=== PATIENT | female | born 1970 | race Caucasian/White ===

== ENCOUNTER 2018-01-25 14:25 | Emergency (ER) | payer OTHER ==
--- NOTE | 2018-01-25 14:38 | PDOC ---
Rapid Medical Evaluation Time Seen by Provider: 01/25/18 14:37 Medical Evaluation: Allergies Allergy/AdvReac Type Severity Reaction Status Date / Time No Known Allergies Allergy Unverified 04/17/15 11:31 01/25/18 14:37 The patient presents with a chief complaint of: neck pain, right arm numbness I have performed a brief in-person evaluation of this patient. Pertinent physical exam findings: vss, alert, oriented, ambulatory I have ordered the following: tylenol, labs, ekg The patient will proceed to the ED for further evaluation. 01/25/18 14:41
[2018-01-25] MEDS ORDERED: ACETAMINOPHEN 325 MG TABLET (FP) PO ONE (14:40)
[2018-01-25 14:43] VITALS: BMI 21.0
[2018-01-25] MEDS ORDERED: ACETAMINOPHEN 325 MG TABLET (FP) ONE (15:11)
[2018-01-25 15:37] LABS: BASO % 0.1 % (0-2.0); EOS % 0.8 % (0-4.5); HEMATOCRIT 39.4 % (32.4-45.2); HEMOGLOBIN 13.6 GM/dL (10.7-15.3); LYMPH % 15.7 % (8-40); MCH 31.9 pg (25.7-33.7); MCHC 34.5 g/dl (32.0-36.0); MEAN CELL VOLUME 92.7 fl (80-96); MEAN PLT VOLUME 7.2 fl (7.5-11.1); MONO % 7.9 % (3.8-10.2); NEUT % 75.5 % (42.8-82.8); PLATELET COUNT 234 K/MM3 (134-434); RBC 4.25 M/mm3 (3.60-5.2); RDW 12.6 % (11.6-15.6); WHITE BLOOD COUNT 5.5 K/mm3 (4.0-10.0)
--- NOTE | 2018-01-25 15:50 | PDOC ---
History of Present Illness - General Chief Complaint: Pain, Acute Stated Complaint: PCP SENT Time Seen by Provider: 01/25/18 14:37 History Source: Patient - History of Present Illness Timing/Duration: other Associated Symptoms: denies: headaches, nausea/vomiting, shortness of breath, syncope, weakness Past History - Past Medical History Allergies/Adverse Reactions: Allergies Allergy/AdvReac Type Severity Reaction Status Date / Time No Known Allergies Allergy Unverified 01/25/18 14:39 Home Medications: Ambulatory Orders NK [No Known Home Medication] 01/25/18 COPD: No - Suicide/Smoking/Psychosocial Hx Smoking History: Former smoker Have you smoked in the past 12 months: No Information on smoking cessation initiated: No Hx Alcohol Use: No Drug/Substance Use Hx: No Review of Systems - Review of Systems Constitutional: No: Chills, Fever HEENTM: No: Blurred Vision ABD/GI: No: Nausea, Vomiting Musculoskeletal: Yes: Neck Pain. No: Back Pain Neurological: Yes: Numbness. No: Headache, Tingling, Weakness, Dizziness *Physical Exam - Vital Signs Last Vital Signs Temp Pulse Resp BP Pulse Ox 139/91 100 01/25/18 14:40 01/25/18 15:20 - Physical Exam General Appearance: Yes: Appropriately Dressed. No: Apparent Distress HEENT: positive: Normal Voice Neck: positive: Supple. negative: Tender, Carotid bruit, Decreased range of motion Respiratory/Chest: negative: Respiratory Distress Integumentary: positive: Dry, Warm Neurologic: positive: production cell leader II-XII NML intact, Fully Oriented, Alert, Normal Mood/ Affect, Motor Strength 5/5, Finger to Nose. negative: Facial Droop, Sensory Deficit, Confused, Disoriented (no nystagmus, Sherley intact, no drift, no ataxia) ED Treatment Course - LABORATORY CBC & Chemistry Diagram: 01/25/18 15:13 01/25/18 15:13 - Medications Given in the ED: ED Medications Discontinued Medications Generic Name Dose Route Start Last Admin Trade Name Freq PRN Reason Stop Dose Admin Acetaminophen 650 mg 01/25/18 14:40 01/25/18 15:13 Tylenol - PO 01/25/18 14:41 650 mg ONCE ONE Administration Medical Decision Making - Medical Decision Making 01/25/18 15:39 48-year-old female, denies any significant past medical history, here c/o " funny feeling to right side of neck" that has been intermittent for several days and now feels the similar sensation to right upper extremity and possible numbness of fingers that has also been intermittent. Denies headache, acute dizziness, visual changes, slurred speech focal weakness, nausea or vomiting. No history of similar symptoms and no recent trauma. Seen by her primary doctor today, Dr. Elenita Pelaez ([phone]) and told her blood pressure was 160/90 in office. Was sent to ER to rule out possible TIA and DVT See exam Possible RUE radiculopathy, less likely TIA/CVA or DVT, no e/o dissection Well asif and stable w/ no focal deficits Pt declining CT and DVT studies at this time -Will discus w/ referring PMD 01/25/18 16:[address] Daigle and informed her of our exam and our impression that CVA and DVT very unlikely at this time. Geovany informs me that she sent patient in based on BP of 160/90 in office. Aware that blood pressure is better here. Also informed that patient is leaning more to declining CT and ultrasound. States it is reasonable for us to hold off on these studies given reported clinical findings. Above was explained to patient, who would prefer to hold off on any imaging at this time. Only requests that we repeat her blood pressure and if it still unremarkable would like to be discharged. Dr. Do aware 01/25/18 16:09 Rpt blood pressure 138/90. Patient now states she wants to have head CT and Doppler study done 01/25/18 17:37 CT head and ultrasound right upper extremity read as negative. Patient stable for discharge to continue following up with her PMD *DC/Admit/Observation/Transfer Diagnosis at time of Disposition: Numbness, Neck discomfort - Discharge Dispostion Disposition: HOME Condition at time of disposition: Good - Referrals Referrals: Elenita Ibrahim MD [Primary Care Provider] - - Patient Instructions Additional Instructions: The cause of your symptoms are unclear at this time, but could represent a nerve condition. Your head CT and right arm ultrasound were both negative. Continue to follow-up with your PMD for further evaluation - Post Discharge Activity
[2018-01-25 15:57] LABS: INR 0.96 (0.82-1.09); PROTHROMBIN TIME (PATIENT) 10.9 SEC (9.98-11.88)
[2018-01-25 16:00] LABS: ACTIVATED PTT 29.9 SECONDS (26.9-34.4)
--- NOTE | 2018-01-25 16:59 | PDOC ---
*Physical Exam - Vital Signs Last Vital Signs Temp Pulse Resp BP Pulse Ox 139/91 100 01/25/18 14:40 01/25/18 15:20 ED Treatment Course - LABORATORY CBC & Chemistry Diagram: 01/25/18 15:13 01/25/18 15:13 - ADDITIONAL ORDERS Additional order review: 01/25/18 15:13 RBC 4.25 MCV 92.7 MCHC 34.5 RDW 12.6 MPV 7.2 L Neutrophils % 75.5 Lymphocytes % 15.7 Monocytes % 7.9 Eosinophils % 0.8 Basophils % 0.1 - Medications Given in the ED: ED Medications Discontinued Medications Generic Name Dose Route Start Last Admin Trade Name Freq PRN Reason Stop Dose Admin Acetaminophen 650 mg 01/25/18 14:40 01/25/18 15:13 Tylenol - PO 01/25/18 14:41 650 mg ONCE ONE Administration Medical Decision Making - Medical Decision Making 01/25/18 16:01 Ms Reed is a 48 yo F with no significant past medical history She presents to the ER with a complaint of neck pain which has begun to radiate down the arm no weakness ? numbness Pt referred for r/o TIA/CVA and r/o DVT Initially pt did not want these studies After repeating BP, she requested that we do them CT ordered US ordered Pt seen by Midlevel Provider under my direct supervision Pt interviewed and examined Ancillary studies reviewed I agree with plan as outlined by Midlevel Provider *DC/Admit/Observation/Transfer Diagnosis at time of Disposition: Numbness, Neck discomfort - Discharge Dispostion Disposition: HOME Condition at time of disposition: Good - Referrals Referrals: Elenita Ibrahim MD [Primary Care Provider] - - Patient Instructions Additional Instructions: The cause of your symptoms are unclear at this time, but could represent a nerve condition. Your head CT and right arm ultrasound were both negative. Continue to follow-up with your PMD for further evaluation - Post Discharge Activity
[2018-01-25 17:00] LABS: ALBUMIN 4.2 g/dl (3.4-5.0); ALK PHOS 55 U/L (45-117); ANION GAP 8 (8-16); BILIRUBIN,TOTAL 0.4 mg/dL (0.2-1.0); BLOOD UREA NITROGEN 10 mg/dL (7-18); CHLORIDE 102 mmol/L (98-107); CO2 28 mmol/L (21-32); CREATININE 0.7 mg/dL (0.55-1.02); GLUCOSE,RANDOM 95 mg/dL (74-106); POTASSIUM 3.8 mmol/L (3.5-5.1); SGOT/AST 15 U/L (15-37); SGPT/ALT 19 U/L (12-78); SODIUM 138 mmol/L (136-145); TOT PROT 7.6 g/dl (6.4-8.2)
[2018-01-25 17:54] VITALS: BP 138/90; PULSE 74
--- NOTE | 2018-01-26 10:10 | EKG ---
Test Reason : Blood Pressure : / mmHG Vent. Rate : 069 BPM Atrial Rate : 069 BPM P-R Int : 124 ms QRS Dur : 082 ms QT Int : 412 ms P-R-T Axes : 021 013 012 degrees QTc Int : 441 ms NORMAL SINUS RHYTHM NORMAL ECG NO PREVIOUS ECGS AVAILABLE Confirmed by Addy Mishra MD ([id number]) on 01/26/2018 10:10:41 AM Referred By: Confirmed By:Addy Mishra MD
== END 2018-01-25 17:54 | disposition home or self-care (01) ==
LOC: JER 14:25
DX: M54.2 Cervicalgia (principal); R20.2 Paresthesia of skin
CPT/HCPCS: 36415; 70450-TC; 80053; 84703; 85025; 85610; 85730; 93005; 93010; 93971; 99283-25

== ENCOUNTER 2020-09-30 11:57 | Emergency (ER) | payer OTHER | END 2020-09-30 12:53 | disposition home or self-care (01) | LOC: JVIRT 11:57 | DX: Z03.818 Encounter for observation for suspected exposure to other biological agents ruled out (principal) | CPT/HCPCS: C9803; G2012-GT; U0003 ==

== ENCOUNTER 2020-10-09 10:38 | Emergency (ER) | payer OTHER | END 2020-10-09 11:56 | disposition home or self-care (01) | LOC: JVIRT 10:38 | DX: U07.1 COVID-19 (principal) | CPT/HCPCS: C9803; G2012-GT; U0003 ==